=== PATIENT | female | born 2000 | race American Indian/Alaskan Native ===

== ENCOUNTER 2020-02-04 15:30 | Emergency (ER) | payer SELFPAY ==
[2020-02-04 15:36] VITALS: BP 125/80
[2020-02-04 16:46] LABS: Bacteria,Urine 1+ /HPF (Negative); Bilirubin,Urine NEG (Negative); Blood,Urine MOD (Negative); Color,Urine Yellow (Yellow); Mucus,Urine 2+ /HPF; Protein,Urine <15 mg/dL mg/dL (Negative); Urobilinogen,Urine < 2.0 mg/dL (<2.0)
[2020-02-04 16:58] LABS: HCG Qualitative,Urine Negative (Negative)
== END 2020-02-04 20:47 | disposition left against medical advice (07) ==
LOC: ED 15:30
DX: R11.10 Vomiting, unspecified (principal); Z53.21 Procedure and treatment not carried out due to patient leaving prior to being seen by health care provider
CPT/HCPCS: 81001; 81025